=== PATIENT | female | born 1970 | race Caucasian/White ===

== ENCOUNTER 2021-05-18 08:57 | Outpatient (CLI) | payer OTHER ==
[2021-05-18] MEDS ORDERED: Iopamidol 370 76% 100 ML VIAL ONE (09:34)
== END 2021-05-18 08:58 | disposition home or self-care (01) ==
LOC: CT 08:57
PROVIDERS: ATTEND Urology
DX: N39.0 Urinary tract infection, site not specified (principal); R35.0 Frequency of micturition; N28.81 Hypertrophy of kidney
CPT/HCPCS: 74178; Q9967